=== PATIENT | male | born 1995 | race Caucasian/White ===

== ENCOUNTER 2023-03-02 11:04 | Outpatient (AMB) | payer OTHER, SELFPAY ==
[2023-03-02 11:15] VITALS: BP 124/62; PULSE 120; RESP 13; TEMP 36.4; O2SAT 98; BMI 33.1
--- NOTE | 2023-03-02 11:15 | A.OFFPC_ITS ---
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 Risk Assessor Required: No Accompanied by: Self / Same As Patient Allergies No Known Allergies Allergy (Verified 03/02/23 11:23) Medication List - Last Reconciled 03/02/23 by Tiffany Sanchez CNP No Known Home Meds Tobacco use date assessed: 03/02/23 Dental Screening Dental Screen Date: 03/02/23 Did you have a dental visit in the last 12 months?: No Did you have a dental problem in the last 6 months where you did not have access to dental care?: No Was dental information given to patient?: Patient declined HPI HPI Comments History of Present Illness Details 28-year-old male presents to establish care He notes he was evaluated by his former PCP and had blood work done 7 years ago He reports h/o anxiety and depression. He states he was on psychotropic medications for 2 months in 2020 and stopped because my personality felt dull. He reports h/o therapy and denies active therapy. He declines medications or therapy at this time. He denies acute symptoms. He notes he is sexually active, in a monogamous relationship, and practices safe sex. FMH: Mother has celiac disease, anemai Sister has anemia PFSH Medical History (Updated 03/02/23 @ 11:58 by Tiffany Sanchez CNP) Asthma HPV exposure Syphilis Surgical History (Updated 03/02/23 @ 11:39 by Pratima Ramon) No pertinent past surgical history Family History (Updated 03/02/23 @ 11:41 by Pratima Ramon) Father Alcohol abuse Psychiatric disorder Paternal Grandmother Alcohol abuse Paternal Grandfather Alcohol abuse Mother Psychiatric disorder Social History Housing: Apartment Alcohol intake: current Alcohol intake frequency: a few times a month Alcohol type: hard liquor Patient Tobacco Use Status: Never used Tobacco e-Cigarette/Vaping Use: Never Used service: No Current occupational status: employed 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 1. Little interest or pleasure in doing things: nearly every day 2. Feeling down, depressed, or hopeless: more than half the days 3. Trouble falling or staying asleep, or sleeping too much: more than half the days 4. Feeling tired or having little energy: more than half the days 5. Poor appetite or overeating: nearly every day 6. Feeling bad about yourself - or that you are a failure or have let yourself or your family down: several days 7. Trouble concentrating on things, such as reading the newspaper or watching television: more than half the days 8. Moving or speaking so slowly that other people could have noticed. Or the opposite - being so fidgety or restless that you have been moving around a lot more than usual: several days 9. Thoughts that you would be better off or of hurting yourself in some way: not at all Total score: 16 Depression Screening Interpretation: Positive Depression Screening Follow-up: Existing condition and Declines treatment 72908 - PHQ-9 Billing: Yes Source: Developed by Drs. Maxi Mtz, Shannon Weir, Hernando Bell and colleagues, with an educational natalia from [employer]. Thrive Questionnaire Date Thrive assessed: 03/02/23 What is your living situation today?: I have a steady place to live Within the past 12 months, did the food you bought not last and you didn't have the money to get more?: Never true Within the past 12 months, did you worry whether your food would run out before you got money to buy more?: Never true Do you have trouble paying for medicines?: No Do you have trouble getting transportation to medical appointments?: No Do you have trouble paying your heating and electricity bill?: No Do you have trouble taking care of your child, family member or friend?: No Do you have trouble with day-to-day activities such as bathing, preparing meals, shopping, managing finances, etc.?: No Are you currently unemployed and looking for a job?: No Are you interested in more education?: No Please select the resources that you would like help with: None Currently or been in a relationship where the following occur: no concerns reported AUDIT C Alcohol Use Questionnaire (AUDIT-C) 1. How often do you have a drink containing alcohol?: 2-4 times a month (Tequila, Vodka, Rum) 2. How many drinks containing alcohol do you have on a typical day when you are drinking?: 1 or 2 3. How often do you have six or more drinks on one occasion?: Never Total Score: 2 KUNAL-7 AMB Questionnaire KUNAL-7 Date KUNAL - 7 assessed: 03/02/23 Feeling nervous, anxious, or on edge: 1 = Several days Not being able to stop or control worryin = Several days Worrying too much about different things: 2 = More than half the days Trouble relaxin = Not at all Being so restless that it is hard to sit still: 1 = Several days Becoming easily annoyed or irritable: 2 = More than half the days Feeling afraid as if something awful might happen: 3 = Nearly every day Total KUNAL-7 score (0-4 normal; 5-9 mild; 10-14 moderate; 15-21 severe): 10 Source: Developed by Drs. Maxi Mtz, Shannon Weir, Hernando Bell and colleagues, with an educational natalia from [employer]. KUNAL-7 Assessment Billing KUNAL-7 Assessment Tool: KUNAL-7 Assessment 89490 Review of Systems Const Details: Denies chills, Denies fatigue, Denies fever(s), Denies headache(s) and Denies weakness HEENT Denies change in vision, Denies dizziness, Denies headache(s), Denies hearing loss, Denies nasal congestion, Denies sinus pain, Denies sinus pressure and Denies sore throat Card Denies chest pain, Denies lightheadedness, Denies dyspnea and Denies other (palpitations) Resp Denies cough, Denies dyspnea and Denies wheezing GI Denies abdominal pain, Denies melena, Denies hematochezia, Denies change in bowel habits, Denies dyspepsia and Denies nausea Denies hematuria and Denies dysuria Musc Denies abnormal gait, Denies myalgias, Denies arthralgias, Denies numbness and Denies tingling Skin/Breast Denies rash, Denies unusual bruising and Denies wounds Neuro Denies abnormal gait, Denies dizziness, Denies headache(s), Denies memory loss, Denies numbness, Denies Sensory deficit (Neuro), Denies tingling and Denies weakness Psych Reports anxiety, Reports depression and Denies memory loss Endo Denies cold intolerance, Denies fatigue, Denies heat intolerance, Denies polydipsia and Denies polyuria Alejandro/Lymph Denies easy bleeding and Denies easy bruising Aller/Immun Denies wheezing Physical exam (Primary Care) Vital Signs: Last Vital Signs Temp 97.6 F 03/02/23 11:15 Pulse 120 H 03/02/23 11:15 Resp 13 03/02/23 11:15 BP 124/62 03/02/23 11:15 Pulse Ox 98 03/02/23 11:15 Oxygen Delivery Method Room Air 03/02/23 11:15 BMI result Body Mass Index 33.1 Tobacco/Smoking Status: Tobacco use Status Tobacco use date assessed 03/02/23 03/02/23 11:37 Patient Tobacco Use Status Never used Tobacco 03/02/23 11:37 e-Cigarette/Vaping Use Never Used 03/02/23 11:37 PHQ-9: PHQ-9 Score PHQ-9: Total score 16 03/02/23 11:37 Depression Screening Interpretation: Positive Depression Screening Follow-up: Existing condition and Declines treatment Thrive Assessment: Date of Thrive Assessment Date Thrive assessed 03/02/23 03/02/23 11:37 Currently or been in a relationship where the following occur: no concerns reported Const Other: General: no acute distress, well developed, alert and awake Nutritional Appearance: well nourished Orientation/consciousness: patient oriented x3 HENMT Head: Yes normocephalic and Yes atraumatic Ears: hearing grossly normal bilaterally and impacted cerumen to both ears, occluding the TMs General nose exam: Normal external nose present and Normal nares present Mouth: Normal oral and palatal mucosa present and moist mucous membranes Teeth and gingiva: dentition normal Throat: Yes oropharynx normal Eyes Pupils: Equal, round and reactive pupils present and Pupil accommodation reflex normal EOM: EOMs intact bilaterally Neck Neck: Yes normal visual inspection, Yes no lymphadenopathy and Yes trachea midline Thyroid: Thyroid normal Carotids: no bruits Lymphatic: no lymphadenopathy noted Chest Chest palpation & inspection: normal inspection of the chest Resp Effort & Inspection: normal respiratory effort Auscultation: clear to auscultation bilaterally Cardio Rate: regular rate Rhythm: regular rhythm Heart sounds: S1 normal heart sound present, S2 normal heart sound present, no gallops, no murmurs and no rubs Bruits: no abdominal aortic bruits and no carotid bruits GI Palpation (GI): No Abdominal aortic bruit present, Soft to palpation, nontender, No hepatosplenomegaly present and No Rebound tenderness present Auscultation: normal bowel sounds General: Yes no CVA tenderness Back/Spine/Pelvis Back: no CVA tenderness Cervical Spine: cervical ROM normal and No Cervical spine tenderness Thoracic/Lumbar Spine: thoraco-lumbar ROM normal, No pain with thoraco-lumbar ROM, No thoracic spinal tenderness and No lumbar spinal tenderness Skin General: warm and dry. Normal skin color. Normal skin turgor Lesions: no lesions Rashes: no rashes Trauma: no lacerations or abrasions Wounds: no wounds Nails: normal Neuro General: patient oriented x3, gait normal and CN's II-XI intact bilaterally Cranial nerves: Yes Equal, round and reactive pupils present Cognition (Neuro): normal cognition Gait exam (Neuro): Normal gait present Motor exam (neuro): 5/5 motor strength present throughout Sensory Exam: No Sensory deficit (Neuro) Deep tendon reflexes (DTR's): Right patellar reflex intensity grade: 2+ and Left patellar reflex intensity grade: 2+ Extrem General: Yes normal to inspection, No edema and No calf tenderness Psych Appearance: grossly normal Affect: normal affect Attitude: cooperative Thought process: Normal thought process present Assessment and Plan Assessment & Plan (1) Normal physical examination, routine: Code(s): Z00.00 - Encounter for general adult medical examination without abnormal findings Plan: No significant physical restrictions or limitations noted Advised to get fasting blood work done and schedule a telehealth visit for labs review Return with symptoms or concerns Verbalized understanding and agreed with the plan. (2) Anxiety and depression: Code(s): F41.9 - Anxiety disorder, unspecified; F32.A - Depression, unspecified Plan: Reports history of anxiety and depression. He states he was on psychotropic medications for 2 months in 2020 and stopped because my personality felt dull. He reports h/o therapy and denies active therapy. PHQ-9 and KUNAL-7 scores revealed moderately severe depression and moderate anxiety respectively Declines medication with therapy at this time Advised to inform his PCP if he changes his mind on medication or therapy Routine exercise encouraged Follow-up with worsening or new symptoms Verbalized understanding and agreed with the plan. (3) Impacted cerumen of both ears: Code(s): H61.23 - Impacted cerumen, bilateral Plan: Normal hearing of both ears May use Debrox and schedule an office visit for irrigation with symptoms Verbalized understanding and agreed with the plan. (4) Laboratory tests ordered as part of a complete physical exam (CPE): Code(s): Z00.00 - Encounter for general adult medical examination without abnormal findings Plan: Fasting labs ordered as part of a complete physical exam. Advised to fast for at least 10 hours before getting labs drawn. May drink water Verbalized understanding and agreed with treatment plan. Orders: Orders Comprehensive [place]. Panel Fast Today Z00.00 - Encounter for general adult medical examination without abnormal findings Lipid Panel Today Z00.00 - Encounter for general adult medical examination without abnormal findings TSH reflex Free T4 Today Z00.00 - Encounter for general adult medical examination without abnormal findings Complete Blood Count Auto Diff Today Z00.00 - Encounter for general adult medical examination without abnormal findings UA CC w/rflx Micro + Cult Today Z00.00 - Encounter for general adult medical examination without abnormal findings Coding Level of Care Code New Pt Prev Care 18-39yr(22037 Diagnoses Normal physical examination, routine Z00.00 Anxiety and depression F41.9; F32.A Impacted cerumen of both ears H61.23 Laboratory tests ordered as part of a complete physical exam (CPE) Z00.00 Additional Codes KUNAL-7 Assessment Billing - KUNAL-7 Assessment Tool: KUNAL-7 Assessment 64305 ([id number])
[2023-03-02 11:55] VITALS: PULSE 108
== END 2023-03-02 11:58 | disposition home or self-care (01) ==
PROVIDERS: PCP Nurse Practitioner Family; Visit Provider Nurse Practitioner Family
DX: Z00.00 Encounter for general adult medical examination without abnormal findings (principal); F41.9 Anxiety disorder, unspecified; F32.A Depression, unspecified; H61.23 Impacted cerumen, bilateral
CPT/HCPCS: 99385

== ENCOUNTER 2023-03-02 12:00 | Outpatient (REF) | payer OTHER, SELFPAY ==
[2023-03-02 14:27] LABS: MANUAL DIFF FLAG NO
[2023-03-02 14:31] LABS: Basophils Percent Auto 0.5 % (0-2); Eosinophils Absolute Auto 0.3 X10*3/uL (0.0-0.4); Eosinophils Percent Auto 3.3 % (0-4); Hematocrit 45.7 % (42.0-52.0); Hemoglobin 15.6 g/dl (14.0-18.0); Imm Gran Abs Auto 0.03 X10*3/uL (0.00-0.03); Imm Gran Pct Auto 0.4 % (0.0-0.4); Lymphocytes Absolute Auto 1.5 X10*3/uL (1.2-4.9); Lymphocytes Percent Auto 18.9 % (20-40); Mean Corpuscular HGB Conc 34.1 g/dl (31.0-36.0); Mean Corpuscular Hemoglobin 29.2 pg (27.0-33.0); Mean Corpuscular Volume 85.6 fL (80.0-98.0); Mean Platelet Volume 10.8 fL (9.4-12.4); Monocytes Absolute Auto 0.7 X10*3/uL (0.1-1.2); Monocytes Percent Auto 8.2 % (2-11); Neutrophils Absolute Auto 5.5 x10*3/uL (2.0-8.3); Neutrophils Percent Auto 68.7 % (45-73); Platelet Count 331 X10*3/uL (160-400); Red Blood Count 5.34 X10*6/uL (4.60-5.80); Red Cell Distribution Width 12.1 % (11.0-16.0); White Blood Count 7.9 X10*3/uL (4.8-10.8)
[2023-03-02 14:48] LABS: Appearance Urine Clear; Color Urine Yellow; Glucose Urine UA Negative (Negative); Leukocyte Esterase Urine Negative (Negative); Nitrite Urine Negative (Negative); Specific Gravity - Urine 1.025 (1.005-1.025); Urine Blood Negative (Negative); Urine Ketones Trace mg/dL (Negative); Urine Protein Negative (Neg-Trace)
[2023-03-02 15:27] LABS: Alanine Aminotransferase 24 U/L (0-40); Albumin Level 4.4 g/dL (3.5-5.0); Alkaline Phosphatase 83 U/L (39-117); Anion Gap 10 (12-20); Aspartate Amino Transferase 20 U/L (5-37); Bilirubin Total 1.5 mg/dL (0.0-1.0); Blood Urea Nitrogen 14 mg/dL (9-16); Calcium 10.1 mg/dL (8.4-10.2); Carbon Dioxide 26 mmol/L (22-29); Chloride 106 mmol/L (96-108); Cholesterol 172 mg/dL; Estimated Glomerular Filt Rate > 60; Glucose Fasting 117 mg/dL (60-99); HDL Cholesterol 35 mg/dL; LDL Cholesterol Calculated 115 mg/dl; Potassium 3.9 mmol/L (3.3-5.1); Sodium 138 mmol/L (135-145); Total Protein 7.9 g/dL (6.5-8.0); Triglycerides 112 mg/dL
[2023-03-02 15:41] LABS: TSH reflex Free T4 0.83 uIU/mL (0.32-4.0)
== END 2023-03-02 12:01 | disposition home or self-care (01) ==
LOC: HO.10HDL 12:00
PROVIDERS: Visit Provider Nurse Practitioner Family
DX: Z00.00 Encounter for general adult medical examination without abnormal findings (principal)
CPT/HCPCS: 36415; 80053; 80061; 81003; 84443; 85025

== ENCOUNTER 2023-03-16 16:41 | Outpatient (AMB) | payer OTHER, SELFPAY ==
--- NOTE | 2023-03-16 16:15 | MHC.PC.OV ---
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 Patient established care 2 weeks ago and had blood work done. No acute symptoms today. 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 Maxi Mtz, Shannon Weir, Hernando Bell and colleagues, with an educational natalia from [employer]. Review of Systems Const Details: Const Denies chills, Denies fatigue, Denies fever(s), Denies headache(s) and Denies weakness ENT Denies dizziness and Denies headache(s) Card Denies chest pain, Denies lightheadedness, Denies dyspnea and Denies other (Palpitations) Resp Denies cough, Denies dyspnea, Denies wheezing and Denies other ( shortness of breath) GI Denies abdominal pain, Denies melena, Denies hematochezia, Denies change in bowel habits, Denies dyspepsia and Denies nausea Denies hematuria and Denies dysuria Musc Denies abnormal gait, Denies myalgias, Denies arthralgias, Denies numbness and Denies tingling Skin/Breast Denies rash, Denies unusual bruising and Denies wounds Neuro Denies abnormal gait, Denies dizziness, Denies headache(s), Denies memory loss, Denies numbness, Denies Sensory deficit (Neuro), Denies tingling and Denies weakness Psych Denies anxiety, Denies depression, Denies memory loss Endo Denies cold intolerance, Denies fatigue, Denies heat intolerance, Denies polydipsia and Denies polyuria Aller/Immun Denies wheezing Physical exam (Primary Care) Tobacco/Smoking Status: Tobacco use Status Tobacco use date assessed 03/02/23 03/16/23 16:17 Patient Tobacco Use Status Never used Tobacco 03/16/23 16:17 e-Cigarette/Vaping Use Never Used 03/16/23 16:17 Thrive Assessment: Date of Thrive Assessment Date Thrive assessed 03/02/23 03/16/23 16:17 Const Other: Tele health. No exam Telehealth Telehealth Location of provider rendering services: practice address Location of patient: address on file Patient Identification confirmed using: Name, : Yes Telehealth method: voice only Patient verbally consented to treatment: Yes Patient verbally consented to billing insurance company: Yes Patient informed of any privacy concerns related to visit: Yes Assessment and Plan Assessment & Plan (1) Elevated fasting glucose: Code(s): R73.01 - Impaired fasting glucose Plan: Recent labs and UA results reviewed with the patient Fasting blood glucose was elevated, 117 Will recheck fasting glucose Encouraged to fast for at least 10-12 hours and get blood work done Scheduled a telehealth follow-up visit for review of lab result Verbalized understanding and agreed with treatment plan. (2) Low HDL (under 40): Code(s): E78.6 - Lipoprotein deficiency Plan: HDL is low, 35 Advised to limit foods high in saturated fat and avoid foods high trans fat Routine exercise encouraged Verbalized understanding and agreed with treatment plan. Orders: Orders Glucose Fasting Today R73.01 - Impaired fasting glucose Coding Level of Care Code Est Pt Level 2 (30118) Diagnoses Elevated fasting glucose R73.01 Low HDL (under 40) E78.6
== END 2023-03-16 17:08 | disposition home or self-care (01) ==
PROVIDERS: PCP Nurse Practitioner Family; Visit Provider Nurse Practitioner Family
DX: R73.01 Impaired fasting glucose (principal); E78.6 Lipoprotein deficiency
CPT/HCPCS: 99212

== ENCOUNTER 2023-05-08 11:58 | Outpatient (REF) | payer OTHER, SELFPAY ==
[2023-05-08 14:50] LABS: Glucose Fasting 91 mg/dL (60-99)
== END 2023-05-08 11:59 | disposition home or self-care (01) ==
LOC: HO.WFDLDS 11:58
PROVIDERS: Visit Provider Nurse Practitioner Family
DX: R73.01 Impaired fasting glucose (principal)
CPT/HCPCS: 36415; 82947

== ENCOUNTER 2023-05-15 16:02 | Outpatient (AMB) | payer OTHER, SELFPAY ==
--- NOTE | 2023-05-15 15:58 | A.OFFPC_ITS ---
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 Patient recently had routine blood work done. His fasting glucose was elevated, 117. Fasting glucose was rechecked and resulted as 91. He denies anxiety and depression symptoms He offers no complaints and denies acute symptoms. 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 Maxi Mtz, Shannon Weir, Hernando Bell and colleagues, with an educational natalia from [employer]. Review of Systems Const Details: Const Denies chills, Denies fatigue, Denies fever(s), Denies headache(s) and Denies weakness ENT Denies dizziness and Denies headache(s) Card Denies chest pain, Denies lightheadedness, Denies dyspnea and Denies other (Palpitations) Resp Denies cough, Denies dyspnea, Denies wheezing and Denies other ( shortness of breath) GI Denies abdominal pain, Denies melena, Denies hematochezia, Denies change in bowel habits, Denies dyspepsia and Denies nausea Denies hematuria and Denies dysuria Musc Denies abnormal gait, Denies myalgias, Denies arthralgias, Denies numbness and Denies tingling Skin/Breast Denies rash, Denies unusual bruising and Denies wounds Neuro Denies abnormal gait, Denies dizziness, Denies headache(s), Denies memory loss, Denies numbness, Denies Sensory deficit (Neuro), Denies tingling and Denies weakness Psych Denies anxiety, Denies depression, Denies memory loss Endo Denies cold intolerance, Denies fatigue, Denies heat intolerance, Denies polydipsia and Denies polyuria Aller/Immun Denies wheezing Physical exam (Primary Care) Tobacco/Smoking Status: Tobacco use Status Tobacco use date assessed 03/02/23 05/15/23 16:01 Patient Tobacco Use Status Never used Tobacco 05/15/23 16:01 e-Cigarette/Vaping Use Never Used 05/15/23 16:01 Thrive Assessment: Date of Thrive Assessment Date Thrive assessed 03/02/23 05/15/23 16:01 Const Other: Telehealth visit. No physical exam Telehealth Telehealth Location of provider rendering services: practice address Location of patient: other Patient Identification confirmed using: Name, : Yes Telehealth method: voice only Patient verbally consented to treatment: Yes Patient verbally consented to billing insurance company: Yes Patient informed of any privacy concerns related to visit: Yes Assessment and Plan Assessment & Plan (1) Elevated fasting glucose: Code(s): R73.01 - Impaired fasting glucose Plan: Recent fasting glucose is normal, 91 Previous fasting glucose was elevated, 117 Advised to schedule his next complete physical exam for next year Return with symptoms or concerns Verbalized understanding and agreed with treatment plan. Coding Level of Care Code Tele Est Pt Level 2 (56427) Diagnoses Elevated fasting glucose R73.01 Time Spent (min) 10
== END 2023-05-15 17:00 | disposition home or self-care (01) ==
LOC: HO.HMGFM 16:02
PROVIDERS: PCP Nurse Practitioner Family; Visit Provider Nurse Practitioner Family
DX: R73.01 Impaired fasting glucose (principal)
CPT/HCPCS: 99441

== ENCOUNTER 2023-08-03 09:02 | Outpatient (AMB) | payer OTHER, SELFPAY ==
[2023-08-03 09:03] VITALS: BP 118/78; PULSE 94; O2SAT 99; BMI 34.8
--- NOTE | 2023-08-03 09:03 | A.OFFPC_ITS ---
Vital Signs 08/03/23 09:03 Height 5 ft 4 in Weight 203 lb 0.6 oz BMI 34.8 BP 118/78 Blood Pressure Location Lt brachial Position Sitting Pulse 94 Pulse Source Pulse Oximeter Pulse Oximetry (%) 99 Oxygen Delivery Method Room Air Intake Visit Reasons: HPV follow up Allergies No Known Allergies Allergy (Verified 08/03/23 09:19) Medication List - Last Reconciled 08/03/23 by Tiffany Sanchez CNP No Known Home Meds Tobacco use date assessed: 08/03/23 Dental Screening Dental Screen Date: 08/03/23 Did you have a dental visit in the last 12 months?: Yes Did you have a dental problem in the last 6 months where you did not have access to dental care?: No Was dental information given to patient?: Patient has dentist HPI HPI Comments History of Present Illness Details 28-year-old with complain of multiple pa inless bumps around his anus. He noticed the bumps 4-5 wks ago. Denies itching He denies rash or lesions to his penis or scrotum He notes that he is sexually active, in a monogamous long-term relationship, and uses condoms for sexual intercourse No fever, chills, body aches, fatigue, or weakness PFSH Medical History Asthma HPV exposure Syphilis Surgical History (Updated 03/02/23 @ 11:39 by Pratima Ramon 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 How often do you have a drink containing alcohol?: 2-4 times a month (Tequila, Vodka, Rum) 2. How many drinks containing alcohol do you have on a typical day when you are drinking?: 1 or 2 3. How often do you have six or more drinks on one occasion?: Never Total Score: 2 KUNAL-7 AMB Questionnaire KUNAL-7 Date KUNAL - 7 assessed: 03/02/23 Source: Developed by Drs. Maxi Mtz, Shannon Weir, Hernando Bell and colleagues, with an educational natalia from [employer]. Review of Systems Const Details: Const Denies chills, Denies fatigue, Denies fever(s), Denies headache(s) and Denies w eakness ENT Denies dizziness and Denies headache(s) Card Denies chest pain, Denies lightheadedness, Denies dyspnea and Denies other (Palpitations) Resp Denies cough, Denies dyspnea, Denies wheezing and Denies other ( shortness of breath) GI Denies abdominal pain, Denies melena, Denies hematochezia, Denies change in bowel habits, Denies dyspepsia and Denies nausea Denies hematuria and Denies dysuria Musc Denies abnormal gait, Denies myalgias, Denies arthralgias, Denies numbness and Denies tingling Skin/Breast Reports as per HPI Neuro Denies abnormal gait, Denies dizziness, Denies headache(s), Denies memory loss, Denies numbness, Denies Sensory deficit (Neuro), Denies tingling and Denies weakness Psych Denies anxiety, Denies depression, Denies memory loss Endo Denies cold intolerance, Denies fatigue, Denies heat intolerance, Denies polydipsia and Denies polyuria Aller/Immun Denies wheezing Physical exam (Primary Care) Vital Signs: Last Vital Signs Pulse 94 08/03/23 09:03 BP 118/78 08/03/23 09:03 Pulse Ox 99 08/03/23 09:03 Oxygen Delivery Method Room Air 08/03/23 09:03 BMI result Body Mass Index 34.8 Tobacco/Smoking Status: Tobacco use Status Tobacco use date assessed 08/03/23 08/03/23 09:07 Patient Tobacco Use Status Never used Tobacco 08/03/23 09:07 e-Cigarette/Vaping Use Never Used 08/03/23 09:07 Thrive Assessment: Date of Thrive Assessment Date Thrive assessed 03/02/23 08/03/23 09:07 Const Other: General: no acute distress and well developed Nutritional Appearance: well nourished Orientation/consciousness: patient oriented x3 HENMT Head: Yes normocephalic and Yes atraumatic Eyes General: appearance normal, both eyes and all related structures Pupils: Equal, round and reactive pupils present EOM: EOMs intact bilaterally Resp Effort & Inspection: normal respiratory effort Auscultation: clear to auscultation bilaterally Cardio Rate: regular rate Rhythm: regular rhythm Heart sounds: S1 normal heart sound present, S2 normal heart sound present, no gallops, no murmurs and no rubs GI Palpation (GI): No Abdominal aortic bruit present, Soft to palpation, nontender, No hepatosplenomegaly present and No Rebound tenderness present Auscultation: normal bowel sounds General: Yes no CVA tenderness Back/Spine/Pelvis Back: no CVA tenderness Cervical Spine: cervical ROM normal and No Cervical spine tenderness Thoracic/Lumbar Spine: thoraco-lumbar ROM normal, No pain with thoraco-lumbar ROM, No thoracic spinal tenderness and No lumbar spinal tenderness Extrem General: Yes normal to inspection, No edema and No calf tenderness Skin General: warm and dry. Normal skin color. Normal skin turgor Lesions: Few, skin tags noted at the opening of the anus, not consistent with anal wart Rashes: no rashes Trauma: no lacerations or abrasions Wounds: no wounds Nails: normal Neuro General: patient oriented x3, gait normal and no focal neuro deficit Cranial nerves: Yes Equal, round and reactive pupils present Cognition (Neuro): normal cognition Gait exam (Neuro): Normal gait present Sensory Exam: No Sensory deficit (Neuro) Psych Appearance: grossly normal Affect: normal affect Attitude: cooperative Thought process: Normal thought process present Assessment and Plan Assessment & Plan (1) Skin tags, anus or rectum: Code(s): K64.4 - Residual hemorrhoidal skin tags Plan: Reports multiple painless bumps around his anus Few, skin tags noted at the opening of the anus, not consistent with anal wart Will referred to dermatology Follow-up with pain, itching, or discomfort Verbalized understanding and agreed with the plan Orders: Referrals Dermatology Referral K64.4 - Residual hemorrhoidal skin tags Coding Level of Care Code Est Pt Level 3 (21950) Diagnoses Skin tags, anus or rectum K64.4
== END 2023-08-03 14:06 | disposition home or self-care (01) ==
PROVIDERS: PCP Nurse Practitioner Family; Visit Provider Nurse Practitioner Family
DX: K64.4 Residual hemorrhoidal skin tags (principal)
CPT/HCPCS: 99213

== ENCOUNTER 2024-05-13 08:34 | Outpatient (AMB) | payer OTHER, SELFPAY ==
--- NOTE | 2024-05-13 08:43 | A.OFFPC_ITS ---
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 Allergies No Known Allergies Allergy (Verified 05/13/24 09:22) Medication List - Last Reconciled 05/13/24 by Tiffany Sanchez CNP No Known Home Meds Tobacco use date assessed: 05/13/24 Dental Screening Dental Screen Date: 05/13/24 Did you have a dental visit in the last 12 months?: Yes Did you have a dental problem in the last 6 months where you did not have access to dental care?: No Was dental information given to patient?: Patient has dentist HPI HPI Comments History of Present Illness Details 29-year-old male presents with complaint s of intermittent frontal and occipital headaches for the past 4 weeks. He notes that he experiences the pain every other day, lasting an average of 2 hours. No visual disturbances, dizziness, nausea, or vomiting. He notes that he sleeps well; he sleeps an average of 7 hours nightly. He drinks 12 oz coffee every 3 days. He takes Tylenol or Ibuprofen with some relief. He has not had headache today. He admits to being anxious and attribute his anxiety to working 2 full-time jobs and going to full-time. He notes that he his usually moderately anxious. He does not exercise. He has history of anxiety and depression with h/o psychotherapy which he did not find helpful. He denies history of psychotropic medications. 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 1. Little interest or pleasure in doing things: several days 2. Feeling down, depressed, or hopeless: several days 3. Trouble falling or staying asleep, or sleeping too much: more than half the days 4. Feeling tired or having little energy: more than half the days 5. Poor appetite or overeating: more than half the days 6. Feeling bad about yourself - or that you are a failure or have let yourself or your family down: several days 7. Trouble concentrating on things, such as reading the newspaper or watching television: not at all 8. Moving or speaking so slowly that other people could have noticed. Or the opposite - being so fidgety or restless that you have been moving around a lot more than usual: more than half the days 9. Thoughts that you would be better off or of hurting yourself in some wa y: not at all Total score: 11 Depression Screening Interpretation: Positive Depression Screening Follow-up: Declines treatment Depression Screening Done: Yes 83737 - PHQ-9 Billing: Yes Source: Developed by Drs. Maxi Mtz, Shannon Weir, Hernando Bell and colleagues, with an educational natalia from [employer]. Thrive Questionnaire Date Thrive assessed: 05/13/24 I am a: Patient What is your living situation today?: I have a steady place to live Within the past 12 months, did the food you bought not last and you didn't have the money to get more?: I choose not to answer this question Within the past 12 months, did you worry whether your food would run out before you got money to buy more?: I choose not to answer this question Do you have trouble paying for medicines?: No Do you have trouble getting transportation to medical appointments?: No Do you have trouble paying your heating and electricity bill?: No Do you have trouble taking care of your child, family member or friend?: No Do you have trouble with day-to-day activities such as bathing, preparing meals, shopping, managing finances, etc.?: No Are you currently unemployed and looking for a job?: No Are you interested in more education?: No Please select the resources that you would like help with: None Currently or been in a relationship where the following occur: No concerns reported THRIVE Score: 0 AUDIT C Alcohol Use Questionnaire (AUDIT-C) 1. How often do you have a drink containing alcohol?: Never 3. How often do you have six or more drinks on one occasion?: Never Total Score: 0 Score Reviewed/Action Taken: Yes KUNAL-7 AMB Questionnaire KUNAL-7 Date KUNAL - 7 assessed: 05/13/24 Feeling nervous, anxious, or on edge: 1 = Several days Not being able to stop or control worryin = Several days Worrying too much about different things: 1 = Several days Trouble relaxin = More than half the days Being so restless that it is hard to sit still: 2 = More than half the days Becoming easily annoyed or irritable: 3 = Nearly every day Feeling afraid as if something awful might happen: 1 = Several days Total KUNAL-7 score (0-4 normal; 5-9 mild; 10-14 moderate; 15-21 severe): 11 Source: Developed by Drs. Maxi Mtz, Shannon Weir, Hernando Bell and colleagues, with an educational natalia from [employer]. KUNAL-7 Assessment Billing KUNAL-7 Assessment Tool: KUNAL-7 Assessment 83557 Review of Systems Const Details: Const Denies chills, Denies fatigue, Denies fever(s), Denies headache(s) and Denies weakness ENT Denies dizziness and Denies headache(s) Card Denies chest pain, Denies lightheadedness, Denies dyspnea and Denies other (Palpitations) Resp Denies cough, Denies dyspnea, Denies wheezing and Denies other ( shortness of breath) Musc Denies abnormal gait, Denies myalgias, Denies arthralgias, Denies numbness and Denies tingling Neuro Denies abnormal gait, Denies dizziness, Denies headache(s), Denies memory loss, Denies numbness, Denies Sensory deficit (Neuro), Denies tingling and Denies weakness Psych Reports anxiety, Denies depression, Denies memory loss Endo Denies cold intolerance, Denies fatigue, Denies heat intolerance, Denies polydipsia and Denies polyuria Aller/Immun Denies wheezing Physical exam (Primary Care) Vital Signs: Last Vital Signs Temp 98.2 F 05/13/24 09:01 Pulse 102 H 05/13/24 09:01 Resp 16 05/13/24 09:01 BP 118/74 05/13/24 09:01 Pulse Ox 98 05/13/24 09:01 Oxygen Delivery Method Room Air 05/13/24 09:01 BMI result Body Mass Index 37.2 Tobacco/Smoking Status: Tobacco use Status Tobacco use date assessed 05/13/24 05/13/24 09:00 Patient Tobacco Use Status Never used Tobacco 05/13/24 08:44 e-Cigarette/Vaping Use Never Used 05/13/24 08:44 PHQ-9: PHQ-9 Score PHQ-9: Total score 11 05/13/24 09:00 Depression Screening Interpretation: Positive Depression Screening Follow-up: Declines treatment Thrive Assessment: Date of Thrive Assessment Date Thrive assessed 05/13/24 05/13/24 08:53 Currently or been in a relationship where the following occur: No concerns reported Const Other: General: no acute distress and well developed Nutritional Appearance: well nourished Orientation/consciousness: patient oriented x3 [facility] Head: Yes normocephalic and Yes atraumatic Eyes General: appearance normal, both eyes and all related structures Pupils: Equal, round and reactive pupils present EOM: EOMs intact bilaterally Resp Effort & Inspection: normal respiratory effort Auscultation: clear to auscultation bilaterally Cardio Rate: regular rate Rhythm: regular rhythm Heart sounds: S1 normal heart sound present, S2 normal heart sound present, no gallops, no murmurs and no rubs GI Palpation (GI): No Abdominal aortic bruit present, Soft to palpation, nontender, No hepatosplenomegaly present and No Rebound tenderness present Auscultation: normal bowel sounds General: Yes no CVA tenderness Back/Spine/Pelvis Back: no CVA tenderness Extrem General: Yes normal to inspection, No edema and No calf tenderness Skin General: warm and dry. Normal skin color. Normal skin turgor Neuro General: patient oriented x3, gait normal and no focal neuro deficit Cranial nerves: Yes Equal, round and reactive pupils present Cognition (Neuro): normal cognition Gait exam (Neuro): Normal gait present Sensory Exam: No Sensory deficit (Neuro) Psych Appearance: grossly normal Affect: normal affect Attitude: cooperative Thought process: Normal thought process present Coding Level of Care Code Est Pt Level 4 (66904) Diagnoses Headache R51.9 Anxiety and depression F41.9; F32.A Additional Codes KUNAL-7 Assessment Billing - KUNAL-7 Assessment Tool: KUNAL-7 Assessment 51807 ([id number]) Assessment & Plan Assessment & Plan (1) Headache: Code(s): R51.9 - Headache, unspecified Category: Medical Plan: Reports intermittent frontal and occipital headaches for the past 4 weeks. He experiences the pain every other day, lasting an average of 2 hours. He also reports moderate anxiety symptoms which he attributes to working 2 full-time jobs and going to school full-time. No other associated symptoms. Likely tension headache from anxiety or stress. Advised to take Tylenol or ibuprofen as needed. Routine exercise encouraged. Breathing/relaxation techniques and meditation instructed and encouraged. Advised to get lab work done and follow- up for an extended physical exam. Return with worsening or new symptoms. Verbalized understanding and agreed with treatment plan. (2) Anxiety and depression: Code(s): F41.9 - Anxiety disorder, unspecified; F32.A - Depression, unspecified Category: Medical Plan: Reports moderate anxiety symptoms. Denies depression PHQ-9 and KUNAL-7 scores revealed moderate depression and anxiety Declines psychotherapy or pharmacotherapy for anxiety Routine exercise encouraged He may notify his PCP as needed for pharmacotherapy or psychotherapy referral Follow-up with worsening or new symptoms Verbalized understanding and agreed with the plan
[2024-05-13 09:01] VITALS: BP 118/74; PULSE 102; RESP 16; TEMP 36.8; O2SAT 98; BMI 37.2
== END 2024-05-13 09:43 | disposition home or self-care (01) ==
PROVIDERS: PCP Nurse Practitioner Family; Visit Provider Nurse Practitioner Family
DX: R51.9 Headache, unspecified (principal); F41.9 Anxiety disorder, unspecified; F32.A Depression, unspecified

== ENCOUNTER → 2024-05-13 08:34 | Outpatient (BNVA) | payer OTHER, SELFPAY | PROVIDERS: PCP Nurse Practitioner Family; Visit Provider Nurse Practitioner Family | DX: R51.9 Headache, unspecified (principal); F41.9 Anxiety disorder, unspecified; F32.A Depression, unspecified | CPT/HCPCS: 96127 ==

== ENCOUNTER 2024-06-05 15:46 | Outpatient (REF) | payer OTHER, SELFPAY ==
[2024-06-05 17:47] LABS: MANUAL DIFF FLAG NO
[2024-06-05 17:52] LABS: Appearance Urine Clear; Color Urine Yellow; Glucose Urine UA Negative (Negative); Leukocyte Esterase Urine Negative (Negative); Nitrite Urine Negative (Negative); Specific Gravity - Urine <= 1.005 (1.005-1.025); Urine Blood Negative (Negative); Urine Ketones Negative (Negative); Urine Protein Negative (Neg-Trace)
[2024-06-05 17:58] LABS: Basophils Percent Auto 0.3 % (0-2); Eosinophils Absolute Auto 0.2 X10*3/uL (0.0-0.4); Eosinophils Percent Auto 2.1 % (0-4); Hematocrit 44.2 % (42.0-52.0); Imm Gran Abs Auto 0.03 X10*3/uL (0.00-0.03); Imm Gran Pct Auto 0.3 % (0.0-0.4); Lymphocytes Absolute Auto 2.3 X10*3/uL (1.2-4.9); Lymphocytes Percent Auto 21.9 % (20-40); Mean Corpuscular HGB Conc 33.9 g/dl (31.0-36.0); Mean Corpuscular Hemoglobin 28.7 pg (27.0-33.0); Mean Corpuscular Volume 84.5 fL (80.0-98.0); Mean Platelet Volume 10.8 fL (9.4-12.4); Monocytes Absolute Auto 0.7 X10*3/uL (0.1-1.2); Monocytes Percent Auto 6.9 % (2-11); Neutrophils Absolute Auto 7.1 x10*3/uL (2.0-8.3); Neutrophils Percent Auto 68.5 % (45-73); Platelet Count 334 X10*3/uL (160-400); Red Blood Count 5.23 X10*6/uL (4.60-5.80); Red Cell Distribution Width 12.3 % (11.0-16.0); White Blood Count 10.3 X10*3/uL (4.8-10.8)
[2024-06-05 18:51] LABS: Alanine Aminotransferase 46 U/L (0-40); Albumin Level 4.6 g/dL (3.5-5.0); Alkaline Phosphatase 89 U/L (39-117); Anion Gap 11 (12-20); Aspartate Amino Transferase 33 U/L (5-37); Bilirubin Total 1.3 mg/dL (0.0-1.0); Blood Urea Nitrogen 15 mg/dL (9-16); Calcium 9.8 mg/dL (8.4-10.2); Carbon Dioxide 28 mmol/L (22-29); Chloride 102 mmol/L (96-108); Cholesterol 184 mg/dL (<200); Estimated Glomerular Filt Rate > 60; Glucose Fasting 86 mg/dL (60-99); HDL Cholesterol 34 mg/dL (>40); LDL Cholesterol Calculated 128 mg/dL (<100); Potassium 3.9 mmol/L (3.3-5.1); Sodium 137 mmol/L (135-145); Total Protein 7.9 g/dL (6.5-8.0); Triglycerides 113 mg/dL (<150)
[2024-06-05 18:58] LABS: TSH reflex Free T4 1.36 uIU/mL (0.32-4.0)
== END 2024-06-05 15:47 | disposition home or self-care (01) ==
LOC: HO.WFDLDS 15:46
PROVIDERS: Visit Provider Nurse Practitioner Family
DX: Z00.00 Encounter for general adult medical examination without abnormal findings (principal)
CPT/HCPCS: 36415; 80053; 80061; 81003; 84443; 85025

== ENCOUNTER 2024-06-11 08:05 | Outpatient (AMB) | payer OTHER, SELFPAY ==
--- NOTE | 2024-06-11 08:08 | A.OFFPC_ITS ---
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 The patient is a 29-year-old male presenting for an annual physical examination. The patient has a history of generalized anxiety disorder and major depressive disorder, which have not been managed with psychotropic medications or psychotherapy. He has not opted for any treatment at this time. The patient reports making healthy dietary choices; however, he does not currently engage in regular exercise. Sleep quality is reported as good. The patient has not had an eye examination in over two years. Regarding immunizations, the patient's tetanus vaccine is up-to-date as of December 2018, but he has declined the current flu vaccine. The patient reports experiencing bloating and gastrointestinal discomfort when consuming gluten-containing foods, particularly bread and pasta. This is a concern given his mother's diagnosis of celiac disease, prompting a referral to gastroenterology for further evaluation of potential gluten sensitivity. The patient's weight is currently 212 pounds, with a BMI of 36.4, indicative of obesity. He has expressed an interest in nutritional counseling for weight management and improving exercise habits. Lab results reveal an elevated total bilirubin level suggestive of Gilbert's syndrome and a slightly elevated ALT likely due to fatty liver changes. This is possibly related to his obesity. His HDL cholesterol is low at 34, while LDL cholesterol is at the higher end of normal at 128 mg/dL, and dietary modifications have been recommended. Social History - He reports making generally healthy di etary choices. - He is currently not engaged in regular physical exercise. - Patient's sleep quality is reported as good. Health Maintenance - Up-to-date tetanus vaccination (December 22) - Declined flu vaccination for the season - Referral to an eye doctor for a routin e examination - Encouraged discussion on diet and exer cise for weight management - Advised on dietary modifications to im prove cholesterol levels Labs - Labs: CBC normal, total bilirubin elev ated at 1.3 mg/dL, ALT elevated at 46 U/L. - Lipid panel: HDL 34 mg/dL (low), LDL 1 28 mg/dL (normal but high-end of normal range) - Urinalysis: Normal [facility] Medical History Asthma HPV exposure Syphilis Surgical History (Updated 03/02/23 @ 11:39 by Pratima Ramon [facility]) No pertinent past surgical history Family History Father Alcohol abuse Psychiatric disorder Paternal Grandmother Alcohol abuse Paternal Grandfather Alcohol abuse Mother Psychiatric disorder Social History Housing: Apartment Alcohol intake: current Alcohol intake frequency: a few times a month Alcohol type: hard liquor Patient Tobacco Use Status: Never used Tobacco e-Cigarette/Vaping Use: Never Used Second Hand Smoke Exposure: No service: No Current occupational status: employed 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 1. Little interest or pleasure in doing things: several days 2. Feeling down, depressed, or hopeless: several days 3. Trouble falling or staying asleep, or sleeping too much: more than half the days 4. Feeling tired or having little energy: more than half the days 5. Poor appetite or overeating: nearly every day 6. Feeling bad about yourself - or that you are a failure or have let yourself or your family down: several days 7. Trouble concentrating on things, such as reading the newspaper or watching television: several days 8. Moving or speaking so slowly that other people could have noticed. Or the opposite - being so fidgety or restless that you have been moving around a lot more than usual: several days 9. Thoughts that you would be better off or of hurting yourself in some way: not at all Total score: 12 Depression Screening Interpretation: Positive Depression Screening Follow-up: Existing condition Depression Screening Done: Yes Source: Developed by Drs. Maxi Mzt, Shannon Weir, Hernando Bell and colleagues, with an educational natalia from [employer]. Thrive Questionnaire Date Thrive assessed: 06/11/24 I am a: Patient What is your living situation today?: I have a steady place to live Within the past 12 months, did the food you bought not last and you didn't have the money to get more?: Never true Within the past 12 months, did you worry whether your food would run out before you got money to buy more?: Never true Do you have trouble paying for medicines?: No Do you have trouble getting transportation to medical appointments?: No Do you have trouble paying your heating and electricity bill?: No Do you have trouble taking care of your child, family member or friend?: No Do you have trouble with day-to-day activities such as bathing, preparing meals, shopping, managing finances, etc.?: No Are you currently unemployed and looking for a job?: No Are you interested in more education?: No Please select the resources that you would like help with: None Currently or been in a relationship where the following occur: No concerns reported THRIVE Score: 0 AUDIT C Alcohol Use Questionnaire (AUDIT-C) 1. How often do you have a drink containing alcohol?: Never Total Score: 0 Score Reviewed/Action Taken: Yes KUNAL-7 AMB Questionnaire KUNAL-7 Date KUNAL - 7 assessed: 06/11/24 Feeling nervous, anxious, or on edge: 2 = More than half the days Not being able to stop or control worryin = Several days Worrying too much about different things: 1 = Several days Trouble relaxin = Several days Being so restless that it is hard to sit still: 1 = Several days Becoming easily annoyed or irritable: 2 = More than half the days Feeling afraid as if something awful might happen: 1 = Several days Total KUNAL-7 score (0-4 normal; 5-9 mild; 10-14 moderate; 15-21 severe): 9 Source: Developed by Drs. Maxi Mtz, Shannon Weir, Hernando Bell and colleagues, with an educational natalia from [employer]. KUNAL-7 Assessment Billing KUNAL-7 Assessment Tool: KUNAL-7 Assessment 97274 Review of Systems Const Details: Denies chills, Denies fatigue, Denies fever(s), Denies headache(s) and Denies weakness HEENT Denies change in vision, Denies dizziness, Denies headache(s), Denies hearing loss, Denies nasal congestion, Denies sinus pain, Denies sinus pressure and Denies sore throat Card Denies chest pain, Denies lightheadedness, Denies dyspnea and Denies other (palpitations) Resp Denies cough, Denies dyspnea and Denies wheezing GI Denies abdominal pain, Denies melena, Denies hematochezia, Denies change in bowel habits, Denies dyspepsia and Denies nausea Denies hematuria and Denies dysuria Musc Denies abnormal gait, Denies myalgias, Denies arthralgias, Denies numbness and Denies tingling Skin/Breast Denies rash, Denies unusual bruising and Denies wounds Neuro Denies abnormal gait, Denies dizziness, Denies headache(s), Denies memory loss, Denies numbness, Denies Sensory deficit (Neuro), Denies tingling and Denies weakness Psych Denies anxiety, Denies depression and Denies memory loss Endo Denies cold intolerance, Denies fatigue, Denies heat intolerance, Denies polydipsia and Denies polyuria Alejandro/Lymph Denies easy bleeding and Denies easy bruising Aller/Immun Denies wheezing Physical exam (Primary Care) Vital Signs: Last Vital Signs Temp 97.5 F 06/11/24 08:12 Pulse 94 06/11/24 08:12 Resp 16 06/11/24 08:12 BP 122/68 06/11/24 08:12 Pulse Ox 99 06/11/24 08:12 Oxygen Delivery Method Room Air 06/11/24 08:12 BMI result Body Mass Index 36.4 Tobacco/Smoking Status: Tobacco use Status Tobacco use date assessed 06/11/24 06/11/24 08:18 Patient Tobacco Use Status Never used Tobacco 06/11/24 08:11 e-Cigarette/Vaping Use Never Used 06/11/24 08:11 PHQ-9: PHQ-9 Score PHQ-9: Total score 12 06/11/24 08:18 Depression Screening Interpretation: Positive Depression Screening Follow-up: Existing condition Thrive Assessment: Date of Thrive Assessment Date Thrive assessed 06/11/24 06/11/24 08:11 Currently or been in a relationship where the following occur: No concerns reported Const Other: General: no acute distress, well developed, alert and awake Nutritional Appearance: well nourished Orientation/consciousness: patient oriented x3 HENMT Head: Yes normocephalic and Yes atraumatic Ears: hearing grossly normal bilaterally and Wax present, obstructing visualization of the tympanic membranes General nose exam: Normal external nose present and Normal nares present Mouth: Normal oral and palatal mucosa present and moist mucous membranes Teeth and gingiva: dentition normal Throat: Yes oropharynx normal Eyes Pupils: Equal, round and reactive pupils present and Pupil accommodation reflex normal EOM: EOMs intact bilaterally Neck Neck: Yes normal visual inspection, Yes no lymphadenopathy and Yes trachea midline Thyroid: Thyroid normal Carotids: no bruits Lymphatic: no lymphadenopathy noted Chest Chest palpation & inspection: normal inspection of the chest Resp Effort & Inspection: normal respiratory effort Auscultation: clear to auscultation bilaterally Cardio Rate: regular rate Rhythm: regular rhythm Heart sounds: S1 normal heart sound present, S2 normal heart sound present, no gallops, no murmurs and no rubs Bruits: no abdominal aortic bruits and no carotid bruits GI Palpation (GI): No Abdominal aortic bruit present, Soft to palpation, nontender, No hepatosplenomegaly present and No Rebound tenderness present Auscultation: normal bowel sounds General: Yes no CVA tenderness Back/Spine/Pelvis Back: no CVA tenderness Cervical Spine: cervical ROM normal and No Cervical spine tenderness Thoracic/Lumbar Spine: thoraco-lumbar ROM normal, No pain with thoraco-lumbar ROM, No thoracic spinal tenderness and No lumbar spinal tenderness Skin General: warm and dry. Normal skin color. Normal skin turgor Lesions: no lesions Rashes: no rashes Trauma: no lacerations or abrasions Wounds: no wounds Nails: normal Neuro General: patient oriented x3, gait normal and CN's II-XI intact bilaterally Cranial nerves: Yes Equal, round and reactive pupils present Cognition (Neuro): normal cognition Gait exam (Neuro): Normal gait present Motor exam (neuro): 5/5 motor strength present throughout Sensory Exam: No Sensory deficit (Neuro) Deep tendon reflexes (DTR's): Right patellar reflex intensity grade: 2+ and Left patellar reflex intensity grade: 2+ Extrem General: Yes normal to inspection, No edema and No calf tenderness Psych Appearance: grossly normal Affect: normal affect Attitude: cooperative Thought process: Normal thought process present Coding Level of Care Code Est Pt Level 3 (57494) Est Pt Prev Care 18-39y(61010) Diagnoses Normal physical examination, routine Z00.00 Obesity (BMI 30-39.9) E66.9 Anxiety and depression F41.9; F32.A Gilbert syndrome E80.4 Hepatic steatosis K76.0 Gluten-sensitive enteropathy K90.41 Impacted cerumen of both ears H61.23 Eye exam, routine Z01.00 Additional Codes KUNAL-7 Assessment Billing - KUNAL-7 Assessment Tool: KUNAL-7 Assessment 79147 ([id number]) Assessment & Plan Assessment & Plan (1) Normal physical examination, routine: Code(s): Z00.00 - Encounter for general adult medical examination without abnormal findings Category: Medical Plan: No significant functional limitation noted Healthy diet and routine exercise encouraged Follow up for bilat ear lavage or for symptoms or concerns Verbalized understanding and agreed with the plan (2) Obesity (BMI 30-39.9): Code(s): E66.9 - Obesity, unspecified Category: Medical Plan: Referral to a fire adjuster at [facility] [place] [facility] for dietary counseling and weight management. Emphasize the importance of regular exercise. (3) Anxiety and depression: Code(s): F41.9 - Anxiety disorder, unspecified; F32.A - Depression, unspecified Category: Medical Plan: Patient declined treatment at present. Encourage regular exercise as a non- pharmacological approach to manage symptoms. (4) Gilbert syndrome: Code(s): E80.4 - Gilbert syndrome Category: Medical Plan: Monitor bilirubin levels periodically. Educate the patient about benign nature. (5) Hepatic steatosis: Code(s): K76.0 - Fatty (change of) liver, not elsewhere classified Category: Medical Plan: Monitor liver function tests. Emphasize diet and exercise to manage obesity- related liver changes. (6) Gluten-sensitive enteropathy: Code(s): K90.41 - Non-celiac gluten sensitivity Category: Medical Plan: Reserved referral to gastroenterology for further evaluation due to a familial history of celiac disease. (7) Impacted cerumen of both ears: Code(s): H61.23 - Impacted cerumen, bilateral Category: Medical Plan: Prescribed Debrox to soften earwax; follow-up appointment for wax removal. (8) Eye exam, routine: Code(s): Z01.00 - Encounter for examination of eyes and vision without abnormal findings Category: Medical Plan: Referral to ophthalmology for overdue screening. Orders: Referrals Ophthalmology Referral Z01.00 - Encounter for examination of eyes and vision without abnormal findings Gastroenterology Referral K90.41 - Non-celiac gluten sensitivity Superintendent [employer] Nutrition Referral E66.9 - Obesity, unspecified Medications: New carbamide peroxide 6.5% (Debrox) Instill to both ears 5 drps otic (ears) DAILY 4 days 15 mL 0RF Patient Instructions: During the visit, I discussed the patient's history of anxiety and depression and confirmed his decision to decline treatment currently but encouraged non- pharmacological interventions like exercise. We discussed the importance of monitoring Gilbert's syndrome and fatty liver disease due to obesity and elevated liver enzymes. I emphasized dietary and lifestyle modifications for weight and hypercholesterolemia management, providing education on reducing saturated fats and increasing physical activity. For his earwax buildup, I prescribed Debrox and instructed on follow-up care. We arranged referrals for an eye examination and gastroenterology evaluation due to potential gluten sensitivity and family history of celiac disease. - Begin using prescribed Debrox prior to earwax removal appointment. - Follow a low-cholesterol diet, limiting red meat and saturated fats. - Initiate a regular exercise regimen. - Schedule and attend eye examination and gastroenterology referrals. - Monitor for symptoms suggesting worsening liver function or increased bilirubin levels. - Return if symptoms of anxiety or depression interfere with daily activities. - Consider flu vaccination if decision changes. Patient was informed and verbally consented to the use of an ambient scribe for clinic note documentation during this visit.
[2024-06-11 08:12] VITALS: BP 122/68; PULSE 94; RESP 16; TEMP 36.4; O2SAT 99; BMI 36.4
== END 2024-06-11 08:48 | disposition home or self-care (01) ==
PROVIDERS: PCP Nurse Practitioner Family; Visit Provider Nurse Practitioner Family
DX: Z00.00 Encounter for general adult medical examination without abnormal findings (principal); E80.4 Gilbert syndrome; E66.9 Obesity, unspecified; Z68.36 Body mass index [BMI] 36.0-36.9, adult; F41.9 Anxiety disorder, unspecified; F32.A Depression, unspecified; K76.0 Fatty (change of) liver, not elsewhere classified; K90.41 Non-celiac gluten sensitivity; H61.23 Impacted cerumen, bilateral

== ENCOUNTER → 2024-06-11 08:05 | Outpatient (BNVA) | payer OTHER, SELFPAY | PROVIDERS: PCP Nurse Practitioner Family; Visit Provider Nurse Practitioner Family | DX: Z00.00 Encounter for general adult medical examination without abnormal findings (principal); E66.9 Obesity, unspecified; Z68.36 Body mass index [BMI] 36.0-36.9, adult; F41.9 Anxiety disorder, unspecified; F32.A Depression, unspecified; E80.4 Gilbert syndrome; K76.0 Fatty (change of) liver, not elsewhere classified; K90.41 Non-celiac gluten sensitivity; H61.23 Impacted cerumen, bilateral | CPT/HCPCS: 96127 ==

== ENCOUNTER 2024-07-28 13:31 | Outpatient (AMB) | payer OTHER, SELFPAY ==
[2024-07-28 13:46] VITALS: BMI 37.5
--- NOTE | 2024-07-28 13:46 | A.OFFVIS_ITS ---
VS Expanded 07/28/24 13:46 07/30/24 10:39 Height 5 ft 4 in 5 ft 4 in Weight 218 lb 4.122 oz 218 lb BMI 37.5 37.4 Intake Visit Reasons: Obesity/Left vm Allergies No Known Allergies Allergy (Verified 06/11/24 08:22) Nutrition Presentation Details: Pt presents for MNt for Obesity Pt repeorts typically having Breakfast (coffee/egg/sausage sand) skips lunch but working on including a yogurt dinner rice/arteaga/chicken 11pm Cereal w milk food frequency fruits: 2/d fish: 0/wk vegetables: daily starches veg milk : 4/d starches > 20 beverages:water, juice physical activity-- etoh/smoking-- BS Monitoring Most Recent Diabetes Results: Cholesterol 184 mg/dL (<200) 06/05/24 HDL Cholesterol 34 mg/dL (>40) L 06/05/24 Triglycerides 113 mg/dL (<150) 06/05/24 Creatinine 1.10 mg/dL (0.5-1.4) 06/05/24 Blood Urea Nitrogen 15 mg/dL (9-16) 06/05/24 Sodium 137 mmol/L (135-145) 06/05/24 Potassium 3.9 mmol/L (3.3-5.1) 06/05/24 Chloride 102 mmol/L (96-108) 06/05/24 Carbon Dioxide 28 mmol/L (22-29) 06/05/24 Calcium 9.8 mg/dL (8.4-10.2) 06/05/24 AST 33 U/L (5-37) 06/05/24 ALT 46 U/L (0-40) H 06/05/24 Total Protein 7.9 g/dL (6.5-8.0) 06/05/24 Albumin 4.6 g/dL (3.5-5.0) 06/05/24 SHT-Xlvuxpd-Lq.Jeor Equation Height: 5 ft 4 in Weight: 218 lb Resting Metabolic Rate: 1876.00 Calculated Activity Level: Sedentary Calories Needed to Maintain Weight: 2251.20 Diagnosis Nutrition problem #1: food nutri know defi As related to (etiology) #1: diagnosis As evidenced by (sign/symptom) #1: knowledge deficit of diet [facility] Medical History Asthma HPV exposure Syphilis Surgical History (Updated 03/02/23 @ 11:39 by Pratima Ramon CMA) No pertinent past surgical history Family History Father Alcohol abuse Psychiatric disorder Paternal Grandmother Alcohol abuse Paternal Grandfather Alcohol abuse Mother Psychiatric disorder Social History Housing: Apartment Alcohol intake: current Alcohol intake frequency: a few times a month Alcohol type: hard liquor Patient Tobacco Use Status: Never used Tobacco e-Cigarette/Vaping Use: Never Used Second Hand Smoke Exposure: No service: No Current occupational status: employed 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[place], [place] Current occupational exposures/hazards: Yes Cognitive needs: No Hearing needs: No Vision needs: No Assessment & Plan Assessment & Plan (1) Obesity (BMI 30-39.9): Code(s): E66.9 - Obesity, unspecified Category: Medical Plan: Wt: 99 Kg ( 08/16 ) Est kcal needs as per MSJ: 2300 (40% carb, 30% protein/fat) Est fluid needs as per 25-30 ml/d: 3000 Est prot per day as per 1 g/kg bw: 100 Recommend fiber intake : 8-10 g per day and gradually increase to 25-28 g per day for women and 35-38 g for men or as tolerated Recommend sodium intake per day : less than 1500 mg less than 2000 mg Educated patient on: ( R = reviewed V = verbalizes understanding N/R = needs review N/A = not applicable * Food sources of carbohydrate, adequate serving sizes and its role in various health conditions: R NEEDS REVIEW /REINFORCEMENT ON GF sources * Differences between complex carbohydrates a simple carbohydrates, role of fiber in diet: R * Lean protein sources of foods: R * Differences between types of fats and role in diet (mono on saturated fat fatty acids, saturated fatty acids, trans fats): R V N/R * Food sources of sodium in salt and healthy modifications for heart health in kidney health: R V R/V * Vitamins and minerals: R V N/R * Healthy plate method concept: R V N/R * Physical activity: Benefits a precaution: R * Dietary prevention of Hyperglycemia: R Patient Instructions: practice mindful eating Continue working on having yogurt or protein shake at lunch instead of skipping work on following healthy plate method by including non starchy vegetables at dinner Drink water, herb/fruit infused water in place of sugar containing beverages Coding Level of Care Code Nutr Indiv Subseq (47452) Diagnoses Obesity (BMI 30-39.9) E66.9 Time Spent (min) 30
[2024-07-30 10:39] VITALS: BMI 37.4
== END 2024-07-28 14:15 | disposition home or self-care (01) ==
PROVIDERS: PCP Nurse Practitioner Family; Visit Provider Dietitian, Registered
DX: E66.9 Obesity, unspecified (principal)

== ENCOUNTER → 2024-07-28 13:31 | Outpatient (BNVA) | payer OTHER, SELFPAY | PROVIDERS: PCP Nurse Practitioner Family; Visit Provider Dietitian, Registered | DX: E66.9 Obesity, unspecified (principal); Z68.37 Body mass index [BMI] 37.0-37.9, adult; Z71.3 Dietary counseling and surveillance | CPT/HCPCS: 97803 ==

== ENCOUNTER 2024-09-11 14:33 | Outpatient (AMB) | payer OTHER, SELFPAY ==
[2024-09-11 14:36] VITALS: BMI 36.5
--- NOTE | 2024-09-11 14:36 | A.OFFVIS_ITS ---
VS Expanded 09/11/24 14:36 Height 5 ft 4 in Weight 212 lb 11.937 oz BMI 36.5 Intake Visit Reasons: obesity Allergies No Known Allergies Allergy (Verified 06/11/24 08:22) Nutrition Presentation Details: Pt presents for MNT f/u for T2DM, Pt reports working , gradually in diet modifications. Often looking for flavorful beverages. BS Monitoring Most Recent Diabetes Results: Cholesterol 184 mg/dL (<200) 06/05/24 HDL Cholesterol 34 mg/dL (>40) L 06/05/24 Triglycerides 113 mg/dL (<150) 06/05/24 Creatinine 1.10 mg/dL (0.5-1.4) 06/05/24 Blood Urea Nitrogen 15 mg/dL (9-16) 06/05/24 Sodium 137 mmol/L (135-145) 06/05/24 Potassium 3.9 mmol/L (3.3-5.1) 06/05/24 Chloride 102 mmol/L (96-108) 06/05/24 Carbon Dioxide 28 mmol/L (22-29) 06/05/24 Calcium 9.8 mg/dL (8.4-10.2) 06/05/24 AST 33 U/L (5-37) 06/05/24 ALT 46 U/L (0-40) H 06/05/24 Total Protein 7.9 g/dL (6.5-8.0) 06/05/24 Albumin 4.6 g/dL (3.5-5.0) 06/05/24 PFSH Medical History Asthma HPV exposure Syphilis Surgical History (Updated 03/02/23 @ 11:39 by Pratima Ramon CMA) No pertinent past surgical history Family History Father Alcohol abuse Psychiatric disorder Paternal Grandmother Alcohol abuse Paternal Grandfather Alcohol abuse Mother Psychiatric disorder Social History Housing: Apartment Alcohol intake: current Alcohol intake frequency: a few times a month Alcohol type: hard liquor Patient Tobacco Use Status: Never used Tobacco e-Cigarette/Vaping Use: Never Used Second Hand Smoke Exposure: No service: No Current occupational status: employed 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[place], [place] Current occupational exposures/hazards: Yes Cognitive needs: No Hearing needs: No Vision needs: No Assessment & Plan Assessment & Plan (1) Obesity (BMI 30-39.9): Code(s): E66.9 - Obesity, unspecified Category: Medical Plan: Wt: 99 Kg ( 08/16 ) Est kcal needs as per MSJ: 2300 (40% carb, 30% protein/fat) Est fluid needs as per 25-30 ml/d: 3000 Est prot per day as per 1 g/kg bw: 100 Recommend fiber intake : 8-10 g per day and gradually increase to 25-28 g per day for women and 35-38 g for men or as tolerated Recommend sodium intake per day : less than 1500 mg less than 2000 mg Educated patient on: ( R = reviewed V = verbalizes understanding N/R = needs review N/A = not applicable * Food sources of carbohydrate, adequate serving sizes and its role in various health conditions: R NEEDS REVIEW /REINFORCEMENT ON GF sources * Differences between complex carbohydrates a simple carbohydrates, role of fiber in diet: R * Lean protein sources of foods: R * Differences between types of fats and role in diet (mono on saturated fat fatty acids, saturated fatty acids, trans fats): R V N/R * Food sources of sodium in salt and healthy modifications for heart health in kidney health: R V R/V * Vitamins and minerals: R V N/R * Healthy plate method concept: R V N/R * Physical activity: Benefits a precaution: R * Dietary prevention of Hyperglycemia: R Patient Instructions: Continue working on reducing sugars Try seltzer water, herb/fruit flavor infused beverages Coding Level of Care Code Nutr Indiv Subseq (94921) Diagnoses Obesity (BMI 30-39.9) E66.9 Time Spent (min) 20
== END 2024-09-11 14:51 | disposition home or self-care (01) ==
PROVIDERS: PCP Nurse Practitioner Family; Visit Provider Dietitian, Registered
DX: E66.9 Obesity, unspecified (principal)

== ENCOUNTER → 2024-09-11 14:33 | Outpatient (BNVA) | payer OTHER, SELFPAY | PROVIDERS: PCP Nurse Practitioner Family; Visit Provider Dietitian, Registered | DX: E66.9 Obesity, unspecified (principal); Z68.36 Body mass index [BMI] 36.0-36.9, adult; Z71.3 Dietary counseling and surveillance | CPT/HCPCS: 97803 ==

== ENCOUNTER → 2024-10-14 13:33 | Outpatient (BNVA) | payer OTHER, SELFPAY | PROVIDERS: PCP Nurse Practitioner Family; Visit Provider Dietitian, Registered | DX: E66.9 Obesity, unspecified (principal); Z71.3 Dietary counseling and surveillance; Z68.36 Body mass index [BMI] 36.0-36.9, adult | CPT/HCPCS: 97803 ==

== ENCOUNTER 2024-12-17 09:12 | Outpatient (AMB) | payer OTHER, SELFPAY ==
--- NOTE | 2024-12-17 09:15 | MHC.OFFVIS ---
Vital Signs 12/17/24 09:23 Height 5 ft 4 in Weight 213 lb BMI 36.6 BP 112/58 L Blood Pressure Location Rt brachial Position Sitting Pulse 100 Pulse Source Pulse Oximeter Pulse Oximetry (%) 97 Oxygen Delivery Method Room Air Intake Visit Reasons: Non-celiac gluten sensitivity Intake Note: NEW PATIENT for eval of food sensitivity. 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 CC; C.O. generalized abd cramping, constipation and diarrhea intermittently. Pt states that he has had sx for the last 2-3 years but has never formally addressed them until recently as his sx are becoming more frequent. No pertinent FMHx or Surgical Hx. No additional sx reported. 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 Patient reports that in the past couple years he has been living trouble with his bowels. Patient feels like he is sensitive to gluten. Every time he has bread pasta or pizza he has abdominal pain, bloating and loose stools. Patient also reports that he stopped lactose for couple weeks and noticed the difference. Patient feels like he is also lactose intolerant. Patient denies melena, hematochezia. Denies any acid reflux, dyspepsia, dysphagia or odynophagia. Patient denies any other GI concerning symptoms. 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[place], [place] Current occupational exposures/hazards: Yes Cognitive needs: No Hearing needs: No Vision needs: No Review of Systems Const Denies weight gain and Denies weight loss ENT Reports no additional complaints, Denies dysphagia and Denies odynophagia Card Reports no additional complaints Resp Reports no additional complaints GI Reports abdominal pain, Denies belching, Denies melena, Reports bloating, Reports change in bowel habits, Denies dysphagia, Denies excessive flatus, Denies dyspepsia, Denies heartburn, Denies diarrhea, Reports loose stools, Denies nausea, Denies odynophagia and Denies vomiting Reports no additional complaints Musc Reports no additional complaints Neuro Reports no additional complaints Psych Reports no additional complaints Endo Reports no additional complaints Physical Exam Const General: healthy appearing, no acute distress and well developed Nutritional Appearance: well nourished Orientation/consciousness: patient oriented x3 Resp Effort & Inspection: normal respiratory effort, able to speak in complete sentences, no tracheal deviation and symmetric chest movement Auscultation: clear to auscultation bilaterally Cardio Rate: regular rate GI Inspection: Yes normal to inspection and No distended Palpation (GI): Soft to palpation, not firm, nontender and No hepatosplenomegaly present Auscultation: normal bowel sounds General: Yes no CVA tenderness Back/Spine/Pelvis Back: no CVA tenderness Skin General skin exam: elasticity normal, turgor normal and dry skin Neuro General: patient oriented x3 Psych Appearance: grossly normal Mental Status: mental status grossly normal Assessment & Plan Assessment & Plan (1) Postprandial diarrhea: Code(s): K52.9 - Noninfective gastroenteritis and colitis, unspecified (2) Postprandial abdominal bloating: Code(s): R14.0 - Abdominal distension (gaseous) (3) IBS (irritable bowel syndrome): Code(s): K58.9 - Irritable bowel syndrome, unspecified Qualifiers: Irritable bowel syndrome type: with both diarrhea and constipation Qualified Code(s): K58.2 - Mixed irritable bowel syndrome Plan Patient will follow low FODMAP diet. In the meantime we will check transglutaminase, thyroid, vitamin B12, folate, vitamin-D level. List of food recommended as well as list of food to avoid given to patient. Will also check lipase. Patient reports left upper quadrant pain. Patient will start taking Citrucel daily to help him bulk stools. Increase fluid intake and activity to promote better bowel motility. Patient will follow-up in 3 months, sooner on as needed basis. He is agreeable to this plan and verbalizes understanding of instructions. He was given the opportunity to ask questions and all questions answered. Thank you for allowing me to participate in his care Orders: Orders TSH reflex Free T4 Today K59.00 - Constipation, unspecified Vitamin B12 and Folate Today R19.7 - Diarrhea, unspecified Transglutaminase IgA Today R10.9 - Unspecified abdominal pain Transglutaminase Ab IgG Today R10.9 - Unspecified abdominal pain Lipase Today R10.9 - Unspecified abdominal pain Vitamin D 25-OH (D2 and D3) Today E55.9 - Vitamin D deficiency, unspecified Medications: New methylcellulose (laxative) (Citrucel) take it with full glass of water 500 mg PO DAILY 90 tabs 2RF K59.00 - Constipation, unspecified Coding Level of Care Code New Pt Level 3 (14654) Diagnoses Postprandial diarrhea K52.9 Postprandial abdominal bloating R14.0 Irritable bowel syndrome with both constipation and diarrhea K58.2 Irritable bowel syndrome type: with both diarrhea and constipation Time Spent (min) 40 Comment 30 minutes spent with patient and additional 10 minutes spent reviewing his records
[2024-12-17 09:23] VITALS: BP 112/58; PULSE 100; O2SAT 97; BMI 36.6
== END 2024-12-17 09:37 | disposition home or self-care (01) ==
LOC: HO.HGI 09:13
PROVIDERS: PCP Nurse Practitioner Family; Visit Provider Nurse Practitioner Family
DX: K52.9 Noninfective gastroenteritis and colitis, unspecified (principal); R14.0 Abdominal distension (gaseous)
CPT/HCPCS: 99203

== ENCOUNTER 2024-12-17 09:12 | Outpatient (REF) | payer OTHER, SELFPAY ==
[2024-12-17 11:32] LABS: Lipase 23 U/L (8-78)
[2024-12-17 11:58] LABS: TSH reflex Free T4 1.22 uIU/mL (0.32-4.0)
[2024-12-17 12:27] LABS: Folate 5.9 ng/mL (> or = 4.0); Vitamin B12 571 pg/mL (200-900)
[2024-12-18 20:48] LABS: Transglutaminase Ab IgG <1.0 U/mL; Transglutaminase IgA <1.0 U/mL
[2024-12-21 15:38] LABS: Vitamin D 25-OH, D2 <4 ng/mL; Vitamin D 25-OH, D3 13 ng/mL; Vitamin D 25-OH, Total 13 ng/mL (30-100)
== END 2024-12-17 09:13 | disposition home or self-care (01) ==
LOC: HO.LAB 09:12
PROVIDERS: PCP Nurse Practitioner Family; Visit Provider Nurse Practitioner Family
DX: R14.0 Abdominal distension (gaseous) (principal); K58.2 Mixed irritable bowel syndrome; R10.9 Unspecified abdominal pain; K59.00 Constipation, unspecified; E55.9 Vitamin D deficiency, unspecified
CPT/HCPCS: 36415; 82306; 82607; 82746; 83690; 84443; 86364

== ENCOUNTER 2025-03-16 15:10 | Outpatient (AMB) | payer OTHER, SELFPAY ==
--- NOTE | 2025-03-16 15:14 | A.OFFVIS_ITS ---
Vital Signs 03/16/25 15:18 Height 5 ft 4 in Weight 219 lb BMI 37.6 BP 128/60 Blood Pressure Location Rt brachial Position Sitting Pulse 94 Pulse Source Pulse Oximeter Pulse Oximetry (%) 99 Oxygen Delivery Method Room Air Intake Visit Reasons: 3 month follow up Intake Note: Est pt for mgmt of IBS. Labs done. CC; Pt denies any GI sx or changes since last visit. Pt states that he is doing very well at the moment. Credit And Collections Representative Required: No Accompanied by: Self / Same As Patient Allergies No Known Allergies Allergy (Verified 03/16/25 15:15) HPI HPI 3 month follow up: Details: LAST VISIT Postprandial diarrhea Postprandial abdominal bloating IBS (irritable bowel syndrome) Plan Patient will follow low FODMAP diet. In the meantime we will check transglutaminase, thyroid, vitamin B12, folate, vitamin-D level. List of food recommended as well as list of food to avoid given to patient. Will also check lipase. Patient reports left upper quadrant pain. Patient will start taking Citrucel daily to help him bulk stools. Increase fluid intake and activity to promote better bowel motility. Patient will follow-up in 3 months, sooner on as needed basis. He is agreeable to this plan and verbalizes understanding of instructions. He was given the opportunity to ask questions and all questions answered. ? Thank you for allowing me to participate in his care Orders TSH reflex Free T4 Today K59.00 Vitamin B12 and Folate Today R19.7 Transglutaminase IgA Today R10.9 Transglutaminase Ab IgG Today R10.9 Lipase Today R10.9 Vitamin D 25-OH (D2 and D3) Today E55.9 New methylcellulose (laxative) (Citrucel) take it with full glass of water 500 mg PO DAILY 90 tabs 2RF K59.00 TODAY'S VISIT Patient is here today for follow-up and to discuss lab results. Patient had normal labs except for low vitamin-D level. Patient has been taking supplement. Currently patient reports that he has been feeling better. Tried avoiding certain food. States that he is chewing his food better and has noticed less abdominal cramping and bloating. Patient is taking Citrucel daily and states that his bowels have normalized. He is no longer has diarrhea. However on occasion he might have postprandial soft stool and on occasion constipation. Patient denies dyspepsia, dysphagia or odynophagia. Denies melena, hematochezia, unintentional weight loss or ribbon like stools. 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[place], [place] Current occupational exposures/hazards: Yes Cognitive needs: No Hearing needs: No Vision needs: No Review of Systems Const Denies weight gain and Denies weight loss ENT Reports no additional complaints, Denies dysphagia and Denies odynophagia Card Reports no additional complaints Resp Reports no additional complaints GI Reports abdominal pain, Denies belching, Denies melena, Reports bloating, Reports change in bowel habits, Reports constipation (Occasional), Denies dysphagia, Denies excessive flatus, Denies dyspepsia, Denies heartburn, Denies diarrhea, Reports loose stools (Occasional), Denies nausea, Denies odynophagia and Denies vomiting Reports no additional complaints Musc Reports no additional complaints Neuro Reports no additional complaints Psych Reports no additional complaints Endo Reports no additional complaints Physical Exam Vital Signs: Last Vital Signs Pulse 94 03/16/25 15:18 BP 128/60 03/16/25 15:18 Pulse Ox 99 03/16/25 15:18 Oxygen Delivery Method Room Air 03/16/25 15:18 BMI result Body Mass Index 37.6 Const General: healthy appearing, no acute distress and well developed Nutritional Appearance: well nourished and obese Orientation/consciousness: patient oriented x3 Resp Effort & Inspection: normal respiratory effort, able to speak in complete sentences, no tracheal deviation and symmetric chest movement Auscultation: clear to auscultation bilaterally Cardio Rate: regular rate GI Inspection: Yes normal to inspection, No distended and Yes obesity Palpation (GI): Soft to palpation, not firm, nontender and No hepatosplenomegaly present Auscultation: normal bowel sounds General: Yes no CVA tenderness Back/Spine/Pelvis Back: no CVA tenderness Skin General skin exam: elasticity normal, turgor normal and dry skin Neuro General: patient oriented x3 Psych Appearance: grossly normal Mental Status: mental status grossly normal Results Reviewed Results Reviewed: Laboratory Tests 12/17/24 10:02 Lipase 23 Vitamin B12 571 25-OH Vitamin D Total 13 L Folate 5.9 TSH 1.22 Tiss Transglutamin IgG <1.0 Tiss Transglutamin IgA <1.0 Assessment & Plan Assessment & Plan (1) Postprandial diarrhea: Code(s): K52.9 - Noninfective gastroenteritis and colitis, unspecified (2) Postprandial abdominal bloating: Code(s): R14.0 - Abdominal distension (gaseous) (3) Irritable bowel syndrome: Code(s): K58.9 - Irritable bowel syndrome, unspecified Qualifiers: Irritable bowel syndrome type: with both diarrhea and constipation Qualified Code(s): K58.2 - Mixed irritable bowel syndrome (4) Constipation: Code(s): K59.00 - Constipation, unspecified Qualifiers: Constipation type: slow transit constipation Qualified Code(s): K59.01 - Slow transit constipation Plan Patient will continue current diet plan. Increase fluid intake and activity to promote better bowel motility. Still discussed with patient about losing weight, increase activity. Increase fiber intake. Patient can take senna if he does not feel like he empties his bowels completely. Patient will return in 6 months. Will repeat liver enzymes. Low-fat, low-salt, low carb and high- protein diet recommended. Patient is agreeable to this plan and verbalizes understanding of instructions. She was given the opportunity to ask questions and all questions answered. Thank you for allowing me to participate in his care Medications: New sennosides (Evac-U-Gen (sennosides)) 8.6 mg PO BEDTIME 30 tabs 3RF Coding Level of Care Code Est Pt Level 3 (16095) Diagnoses Postprandial diarrhea K52.9 Postprandial abdominal bloating R14.0 Irritable bowel syndrome with both constipation and diarrhea K58.2 Irritable bowel syndrome type: with both diarrhea and constipation Slow transit constipation K59.01 Constipation type: slow transit constipation Time Spent (min) 25 Comment 15 minutes spent with patient and additional 10 minutes spent reviewing his records
[2025-03-16 15:18] VITALS: BP 128/60; PULSE 94; O2SAT 99; BMI 37.6
== END 2025-03-16 15:39 | disposition home or self-care (01) ==
LOC: HO.HGI 15:11
PROVIDERS: PCP Nurse Practitioner Family; Visit Provider Nurse Practitioner Family
DX: K52.9 Noninfective gastroenteritis and colitis, unspecified (principal); R14.0 Abdominal distension (gaseous); K59.01 Slow transit constipation
CPT/HCPCS: 99213